=== PATIENT | male | born 1945 | race Caucasian/White ===

== ENCOUNTER 2022-11-12 13:00 | Observation (INO) | payer OTHER ==
[~2022-11-12] VITALS: Ht 177.8 cm; Wt 104.3 kg
[2022-11-12 14:23] LABS: BASOPHILS % (AUTO) 0.7 % (0.0-5.0); EOSINOPHILS % (AUTO) 3.4 % (0.0-8.0); HEMATOCRIT 52.6 % (42-54); LYMPHOCYTES % (AUTO) 24.2 % (21.0-51.0); MEAN CORPUSCULAR HEMOGLOBIN 28.6 pg (27.0-33.0); MEAN CORPUSCULAR HGB CONC 32.5 g/dL (32.0-36.0); MONOCYTES % (AUTO) 7.4 % (3.0-13.0); NEUTROPHILS % (AUTO) 63.9 % (40.0-77.0); PLATELET COUNT (AUTO) 273 K/uL (130-400); RED BLOOD CELL COUNT(AUTO) 5.98 MIL/uL (4.50-6.20); RED CELL DISTRIBUTION WIDTH 13.9 % (11.0-15.5); WHITE BLOOD COUNT (AUTO) 10.1 K/uL (4.8-10.8)
[2022-11-12 14:26] LABS: APPEARANCE,URINE CLEAR (CLEAR); BILIRUBIN,URINE NEGATIVE (NEGATIVE); COLOR,URINE LIGHT-YELLOW (YELLOW); GLUCOSE, URINE (UA) NEGATIVE (NEGATIVE); KETONES,URINE NEGATIVE (NEGATIVE); LEUKOCYTE ESTERASE ,URINE 25 Leu/uL (NEGATIVE); NITRATE,URINE NEGATIVE (NEGATIVE); OCCULT BLOOD,URINE NEGATIVE (NEGATIVE); PH,URINE 5.5 (5.0-8.0); PROTEIN,URINE NEGATIVE (NEGATIVE); UROBILINOGEN,URINE 0.2 mg/dL (0.2-1.0)
[2022-11-12 14:29] VITALS: BP 153/83
[2022-11-12 14:29] LABS: RBC,URINE 0-1 /HPF (0-1); WBC,URINE 0-1 /HPF (0-1)
[2022-11-12 14:35] LABS: INR 0.94 (0.85-1.15); PROTHROMBIN TIME 10.3 SEC (9.6-11.6)
[2022-11-12 14:36] LABS: PARTIAL THROMBOPLASTIN TIME 28.2 SEC (26.3-35.5)
[2022-11-12 14:40] LABS: ALBUMIN 3.8 g/dL (3.5-5.0); CARBON DIOXIDE 29 mmol/L (21-32); CHLORIDE 104 mmol/L (101-111); GLOMERULAR FILTR. RATE CALC 78 mL/min (>90); GLUCOSE,RANDOM 94 mg/dL (70-105); POTASSIUM 4.4 mmol/L (3.5-5.1); SODIUM SERUM 142 mmol/L (136-145); UREA NITROGEN, BLOOD 18 mg/dL (7-18)
[2022-11-12 14:55] LABS: CRP QUANTITATIVE < 2.00 mg/L (0.00-9.0)
[2022-11-12] MEDS ORDERED: SERT-440 PO (15:24)
[2022-11-12] MEDS ORDERED: CLOP-31 PO (15:24)
[2022-11-12] MEDS ORDERED: DULA0.75 SQ (15:24)
[2022-11-12] MEDS ORDERED: LATA7.5D OS (15:24)
[2022-11-12] MEDS ORDERED: LOSA1TAB37 PO (15:24)
[2022-11-12] MEDS ORDERED: GABA300C PO (15:24)
[2022-11-13] VITALS (51 sets, daily range): BP systolic 122–188; BP diastolic 66–121
[2022-11-13] MEDS: CEFAZOLIN SODIUM 2 GM VIAL IVPB SCH ×2 (06:00→07:35)
[2022-11-13] MEDS ORDERED: 0.9%NACL 1000ML 1,000 ML IV ONE (06:54)
[2022-11-13] MEDS ORDERED: KETOROLAC 30MG VIAL (30MG/ML) ONE (07:05)
[2022-11-13] MEDS ORDERED: BUPIVACAINE/PF 0.5% 10ML VIAL ONE (07:05)
[2022-11-13] MEDS ORDERED: LIDOCAINE PF 100MG/5ML (2%) SYRINGE 5ML ONE (07:14)
[2022-11-13] MEDS ORDERED: PROPOFOL 10 MG/ML 20ML VIAL IV ONE (07:14)
[2022-11-13] MEDS ORDERED: SUCCINYLCHOLINE 200MG/10ML SYR ONE (07:14)
[2022-11-13] MEDS ORDERED: FENTANYL CITRATE PF 50 MCG/1 ML 2ML VIAL ONE (07:15)
[2022-11-13] MEDS ORDERED: ROCURONIUM 10MG/1ML SYR 10 MG/ML ML ONE ×2 (07:15→08:08)
[2022-11-13] MEDS ORDERED: MIDAZOLAM HCL 1 MG/ML 2ML VIAL ONE (07:15)
[2022-11-13] MEDS ORDERED: TRANEXAMIC ACID 1000MG/10ML ONE (07:17)
[2022-11-13] MEDS ORDERED: PHENYLEPHRINE HCL 10 MG/ML 1ML VIAL IV ONE (07:56)
[2022-11-13] MEDS ORDERED: EPHEDRINE SULFATE 50 MG/ML AMPULE ONE (07:57)
[2022-11-13] MEDS ORDERED: NITROGLYCERIN 50MG/D5W 250ML 1 BOT ONE (08:18)
[2022-11-13] MEDS ORDERED: HYDRALAZINE 20MG/ML VIAL ONE (08:37)
[2022-11-13] MEDS ORDERED: GLYCOPYRROLATE 1 MG/5 ML SYRINGE ONE (09:22)
[2022-11-13] MEDS ORDERED: NEOSTIGMINE 5MG/5ML SYR IV ONE (09:22)
[2022-11-13] MEDS ORDERED: MEPERIDINE-PF 25 MG/ML SYG ONE ×2 (09:47→10:32)
[2022-11-13] MEDS ORDERED: KCL 20 MEQ ERTAB PO PRN (10:00)
[2022-11-13] MEDS ORDERED: LIDOCAINE HCL-MPF 1% 2ML VIAL IV PRN (10:00)
[2022-11-13] MEDS ORDERED: DiphenhydrAMINE HCL 50 MG/ML VIAL IVP PRN (10:00)
[2022-11-13] MEDS ORDERED: POTASSIUM CHLORIDE 20MEQ/100ML 100 ML IV PRN (10:00)
[2022-11-13] MEDS ORDERED: POTASSIUM CHLORIDE 10% ELIXIR 20 MEQ/15 ML UDCUP PO PRN (10:00)
[2022-11-13] MEDS ORDERED: FERROUS FUMARATE 324 MG TABLET PO PRN (10:00)
[2022-11-13] MEDS ORDERED: CALCIUM CARB 500MG PO PRN (10:00)
[2022-11-13] MEDS ORDERED: ONDANSETRON 4MG INJ IVP PRN (10:00)
[2022-11-13] MEDS: KETOROLAC 15MG/ML VIAL (15MG/ML) IV SCH ×2 (10:12→18:21)
[2022-11-13] MEDS: GABAPENTIN 100 MG CAPSULE PO SCH ×2 (13:38→21:15)
[2022-11-13] MEDS: CEFAZOLIN SODIUM 1 GM VIAL IVP SCH ×2 (15:55→23:28)
[2022-11-13] MEDS: 0.9%NACL 1000ML 1,000 ML IV SCH ×2 (15:55→20:00)
[2022-11-13] MEDS: HYDROCODONE/ACETAMINOPHEN 5/325 MG TAB PO PRN (18:21)
[2022-11-13] MEDS: CYCLOBENZAPRINE HCL 10 MG TABLET PO PRN (19:37)
[2022-11-13] MEDS: TRAMADOL HCL 50 MG TABLET PO PRN (19:37)
[2022-11-13] MEDS ORDERED: GABAPENTIN 300 MG CAPSULE PO SCH (21:00)
[2022-11-13] MEDS: LATANOPROST 2.5 ML DROPS OS SCH (21:00)
[2022-11-13] MEDS: SERTRALINE HCL 50 MG TABLET PO SCH (21:16)
[2022-11-13] MEDS: DOCUSATE SODIUM 100 MG CAP PO SCH (21:16)
[2022-11-13] MEDS ORDERED: PHARMACY COMMUNICATION MISC SCH (22:30)
[2022-11-13] MEDS ORDERED: GABA-533 PO (23:10)
[2022-11-14] MEDS: HYDROCODONE/ACETAMINOPHEN 5/325 MG TAB PO PRN ×4 (00:08→19:58)
[2022-11-14 00:47] VITALS: BP 178/87
[2022-11-14] MEDS: TRAMADOL HCL 50 MG TABLET PO PRN (01:30)
[2022-11-14] MEDS: CYCLOBENZAPRINE HCL 10 MG TABLET PO PRN ×2 (02:32→19:58)
[2022-11-14] MEDS: 0.9%NACL 1000ML 1,000 ML IV SCH (02:34)
[2022-11-14] MEDS: KETOROLAC 15MG/ML VIAL (15MG/ML) IV SCH (02:34)
[2022-11-14 04:25] VITALS: BP 151/81
[2022-11-14 05:49] LABS: HEMATOCRIT 43.7 % (42-54); MEAN CORPUSCULAR HEMOGLOBIN 28.8 pg (27.0-33.0); MEAN CORPUSCULAR HGB CONC 32.7 g/dL (32.0-36.0); MEAN CORPUSCULAR VOLUME 88.1 fL (79-99); RED BLOOD CELL COUNT(AUTO) 4.96 MIL/uL (4.50-6.20); RED CELL DISTRIBUTION WIDTH 14.1 % (11.0-15.5)
[2022-11-14 05:57] LABS: POTASSIUM 4.4 mmol/L (3.5-5.1)
[2022-11-14 08:37] VITALS: BP 150/93
[2022-11-14] MEDS: GABAPENTIN 100 MG CAPSULE PO SCH ×3 (10:33→19:58)
[2022-11-14] MEDS: CLOPIDOGREL 75MG TAB PO SCH (10:33)
[2022-11-14] MEDS: POLYETHYLENE GLYCOL 3350 17 GM POWD.PACK PO SCH (10:34)
[2022-11-14] MEDS: DOCUSATE SODIUM 100 MG CAP PO SCH ×2 (10:34→19:58)
[2022-11-14] MEDS: LOSARTAN/HYDROCHLOROTHIAZIDE 50-12.5MG TABLET PO SCH (10:34)
[2022-11-14 11:33] VITALS: BP 105/55
[2022-11-14 16:02] VITALS: BP 147/90
[2022-11-14] MEDS: KETOROLAC 15MG/ML VIAL (15MG/ML) IV PRN ×2 (16:23→23:13)
[2022-11-14] MEDS: SERTRALINE HCL 50 MG TABLET PO SCH (19:58)
[2022-11-14] MEDS: LATANOPROST 2.5 ML DROPS OS SCH (19:58)
[2022-11-14 20:38] VITALS: BP 158/90
[2022-11-15 00:20] VITALS: BP 163/95
[2022-11-15] MEDS: HYDROCODONE/ACETAMINOPHEN 5/325 MG TAB PO PRN ×3 (01:59→13:24)
[2022-11-15 03:59] VITALS: BP 136/76
[2022-11-15] MEDS: LOSARTAN/HYDROCHLOROTHIAZIDE 50-12.5MG TABLET PO SCH (08:48)
[2022-11-15] MEDS: KETOROLAC 15MG/ML VIAL (15MG/ML) IV PRN (08:48)
[2022-11-15] MEDS: CLOPIDOGREL 75MG TAB PO SCH (08:49)
[2022-11-15] MEDS: DOCUSATE SODIUM 100 MG CAP PO SCH (08:49)
[2022-11-15] MEDS: GABAPENTIN 100 MG CAPSULE PO SCH ×2 (08:49→13:23)
[2022-11-15] MEDS: POLYETHYLENE GLYCOL 3350 17 GM POWD.PACK PO SCH (08:59)
[2022-11-15 09:26] VITALS: BP 162/101
[2022-11-15 12:14] VITALS: BP 147/90
[2022-11-15] MEDS ORDERED: DOCU-116 PO (12:52)
[2022-11-15] MEDS ORDERED: HYDR-4060 PO (12:52)
[2022-11-15] MEDS ORDERED: CYCL-309 PO (12:52)
[2022-11-15 17:24] VITALS: BP 192/92
[2022-11-16] MEDS ORDERED: BISACODYL 10 MG SUPP.RECT RC PRN (10:00)
[2022-11-20] MEDS ORDERED: DULAGLUTIDE 0.75 MG SQ SCH (09:00)
== END 2022-11-15 18:00 | disposition home health service (06) ==
LOC: DAHIP 11-13 06:08 → EDSTATUS 11-13 13:00 → 4DH 11-13 13:12
PROVIDERS: ADMIT Student in an Organized Health Care Education/Training Program; ATTEND Student in an Organized Health Care Education/Training Program
DX: M17.11 Unilateral primary osteoarthritis, right knee (principal); Z20.822 Contact with and (suspected) exposure to COVID-19; I10 Essential (primary) hypertension; E11.9 Type 2 diabetes mellitus without complications; E78.5 Hyperlipidemia, unspecified; Z87.891 Personal history of nicotine dependence; Z79.899 Other long term (current) drug therapy
CPT/HCPCS: 82040; 80048 ×2; 85025; 85610; 85730; 87088; 84134; 86140; 87426; 81001; 36415 ×2; 87641; 27447; 96374; 96376 ×2; 96375; 64447; 82948 ×10; 73560; 97161; 97039 ×6; 85027; 97116 ×4; 97530 ×2; G0378 ×54; A4663; J7030 ×2; A4215 ×2; J3010; J0690 ×3; J3490 ×5; J0330; J2710; J2001; J0360; J2250; J2704; J2405; J1885 ×8; J2175 ×2; J2370; C1713; G0168; C1776 ×2; A4649 ×4; A6255; A5120; A4223; A4222; A4221